=== PATIENT | female | born 1985 | race Caucasian/White ===

== ENCOUNTER 2017-01-09 19:22 | Emergency (ER) | payer MEDICAID ==
[~2017-01-09] VITALS: Ht 157.5 cm; Wt 77.1 kg
[2017-01-09 20:05] VITALS: BP_SYST 101
[2017-01-09 20:17] LABS: BILIRUBIN,URINE NEGATIVE (NEGATIVE); BLOOD, URINE NEGATIVE (NEGATIVE); CLARITY/URINE CLEAR (CLEAR); COLOR,URINE YELLOW (YELLOW); GLUCOSE,URINE NEGATIVE (NEGATIVE); KETONES,URINE TRACE (NEGATIVE); LEUKOCYTE ESTERASE ,URINE 1+ (NEGATIVE); NITRITE, URINE NEGATIVE (NEGATIVE); PROTEIN URINE NEGATIVE (NEGATIVE)
[2017-01-09 20:25] LABS: BACTERIA,URINE MODERATE /HPF (None Seen); RBC,URINE 0-3 /HPF (0-3)
[2017-01-09 20:26] LABS: MUCUS,URINE None Seen /LPF (None Seen)
[2017-01-09] MEDS ORDERED: NITROFURANTOIN MONOHYD/M-CRYST 100 MG CAPSULE PO ONE ×2 (21:15→21:25)
[2017-01-09] MEDS ORDERED: FLUCONAZOLE 200 MG TABLET (DIFLUCAN) PO ONE (21:15)
[2017-01-09] MEDS ORDERED: FLUCONAZOLE 100 MG TABLET (DIFLUCAN) ONE (21:19)
[2017-01-09 21:41] VITALS: BP_SYST 107
== END 2017-01-09 21:41 | disposition home or self-care (01) ==
LOC: SED 19:22
DX: N76.0 Acute vaginitis (principal); N39.0 Urinary tract infection, site not specified; Z86.2 Personal history of diseases of the blood and blood-forming organs and certain disorders involving the immune mechanism
CPT/HCPCS: 81000-TC; 81025; 87086; 87210-TC; 99284